=== PATIENT | female | born 1940 | race Caucasian/White ===

== ENCOUNTER 2018-12-25 11:10 | Inpatient (IN) | payer OTHER, MEDICARE ==
[~2018-12-25] VITALS: Ht 152.4 cm; Wt 64.0 kg
[~2018-12-25 11:10] MED LIST: APAP500 PO; CIPRO250 M1 PO; DIOVAN PO; GLYCOLAX POWDER17 G1; MYSOLINE250 MG PO; ROXICODONE5 M1 PO; SYNTHROID50 MCG PO
[2018-12-25 11:11] VITALS: BP 132/48
[2018-12-25] MEDS ORDERED: TYLENOL325 MG PO (11:50)
[2018-12-25] MEDS ORDERED: LASIX 20 MG TAB20 MG PO (11:52)
[2018-12-25] MEDS ORDERED: GABAPENTIN 100100 MG PO (11:52)
[2018-12-25] MEDS ORDERED: MILK OF MA400 MG/5 M PO (11:53)
[2018-12-25] MEDS ORDERED: KLOR-CON 1010 MEQ PO (11:53)
[2018-12-25] MEDS ORDERED: THEREMS-M1 EACH PO (11:54)
[2018-12-25] MEDS ORDERED: SENNA8.6 MG PO (11:54)
[2018-12-25 13:18] LABS: ABSOLUTE NEUTROPHILS 6.9 thou/uL (1.4-8.2); BASOPHILS 0.5 % (0.0-2.0); EOSINOPHILS 1.3 % (0.0-3.0); HEMATOCRIT 38.2 % (37.0-47.0); HEMOGLOBIN 12.9 gm/dL (12.0-15.0); LYMPHOCYTES 9.2 % (24.0-44.0); MCH 32.8 pg (26.0-34.0); MCHC 33.7 g/dL (28.0-37.0); MCV 97.3 fL (80.0-100.0); MONOCYTES 6.2 % (1.0-8.0); PLATELET COUNT 195 thou/uL (150-400); POLYS 82.8 % (36.0-66.0); RBC 3.92 mil/uL (4.20-5.00); WBC 8.4 thou/uL (4.0-11.0)
--- NOTE | 2018-12-25 13:27 | NUR ---
REPORT GIVEN TO NURSE AT [facility] RE: PT CONDITION AND ADMISSION TO HOSPITAL
[2018-12-25 13:33] LABS: CALCIUM 9.6 mg/dL (8.5-10.1); CREATININE 0.8 mg/dL (0.6-1.0)
[2018-12-25 13:38] LABS: ALBUMIN 3.2 g/dL (3.4-5.0); TOTAL BILIRUBIN 0.2 mg/dL (<0.1-1.0); TOTAL PROTEIN 7.1 g/dL (6.4-8.2)
[2018-12-25 13:40] VITALS: BP 136/60
--- NOTE | 2018-12-25 13:51 | NUR ---
ATTEMPTED TO CALL REPORT X 2 TO ICU. NURSE NOT ABLE TO TAKE AT THIS TIME AND WILL CALL BACK
[2018-12-25 14:00] VITALS: BP 110/68
[2018-12-25 14:04] LABS: TSH 4.138 uIU/mL (0.358-3.740)
[2018-12-25 19:44] VITALS: BP 107/50
[2018-12-25 20:00] VITALS: BP 107/50
[2018-12-26 04:00] VITALS: BP 122/60
--- NOTE | 2018-12-26 04:58 | NUR ---
PT IS NPO AWAITING ORTHO PROCEDURE FOR FRACTURED DISTAL FEMUR. ASSESSMENT CHARTED. DAUGHTER (DPOA) AT BEDSIDE. CALL LIGHT IN REACH. CONTINUE WITH PLAN OF CARE
[2018-12-26 05:12] LABS: HEMATOCRIT 34.3 % (37.0-47.0); HEMOGLOBIN 11.7 gm/dL (12.0-15.0); MCH 33.3 pg (26.0-34.0); MCHC 34.2 g/dL (28.0-37.0); MCV 97.4 fL (80.0-100.0); RBC 3.52 mil/uL (4.20-5.00); RDW 14.2 % (10.5-14.5)
[2018-12-26 05:25] LABS: CALCIUM 8.9 mg/dL (8.5-10.1); CREATININE 0.8 mg/dL (0.6-1.0); POTASSIUM 4.5 mmol/L (3.5-5.1)
[2018-12-26 08:00] VITALS: BP 100/49
--- NOTE | 2018-12-26 14:28 | NUR ---
INITIAL ASSESSMENT: JULIO reviewed chart and spoke with nursing and attending physician. Pt was admitted from [facility] due to right distal femur fx sustained in a fall at the facility yesterday. Pt with hx of dementia. Ortho consulted regarding need for surgical intervention. JULIO spoke with pt's dtr, Kate, via phone. Introduced role of JULIO. Per Kate, pt is currently in local intermodal truck driver care at [facility] and has been a resident there for almost 8 yrs. Pt is w/c bound and does not ambulate. Sara states that family have chosen conservative treatment at this time. Sara left a message for ortho and waiting for them to return her call. Plan is for pt to return to [facility] when medically stable. JULIO spoke with Sarita in admissions at [facility] to provide update. conference planner to fax clinical info for review. Sarita confirms they are able to accept pt back when stable. JULIO is following to assist as needed with discharge planning.
[2018-12-26 16:00] VITALS: BP 109/40
[2018-12-26 19:51] VITALS: BP 104/48
--- NOTE | 2018-12-26 20:41 | NUR ---
CALLED BACK AND ORDER TO HOLD LOVENOX TONIGHT DOSE.
--- NOTE | 2018-12-26 22:10 | NUR ---
PT LEFT ICU WITH STABLE CONDITIONS TO ROOM 432. 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 ALL BELONGING HAS BEEN SENT WITH HER.
[2018-12-27 04:35] VITALS: BP 99/51
--- NOTE | 2018-12-27 05:20 | NUR ---
PT BEEN SLEEPING THE WHOLE SHIFT. FAMILY IN ROOM. PT IS INCONTINENT.REQUIRES Q2HR TURN. REMAINS ON ROOM AIR. NO SIGNS OF DISTRESS. RLE WITH ABOUT 2+EDEMA.LEFT SIDED CONTRACTURES.PT BEEN NPO SINCE MIDNOC WITH PLANS FOR SURGERY IN THE AM. DTR EXPRESSED NEED TO CANCEL SURGERY. WILL CONTACT DOCTOR IN THE MORNING.
[2018-12-27 05:54] LABS: HEMATOCRIT 28.3 % (37.0-47.0); MCH 33.2 pg (26.0-34.0); MCHC 33.7 g/dL (28.0-37.0); MCV 98.6 fL (80.0-100.0); RBC 2.87 mil/uL (4.20-5.00); WBC 4.8 thou/uL (4.0-11.0)
[2018-12-27 05:58] LABS: HEMOGLOBIN 9.5 gm/dL (12.0-15.0)
[2018-12-27 06:01] LABS: CREATININE 0.8 mg/dL (0.6-1.0); MAGNESIUM 2.2 mg/dL (1.8-2.4); POTASSIUM 4.4 mmol/L (3.5-5.1)
[2018-12-27 07:39] VITALS: BP 114/44
--- NOTE | 2018-12-27 10:53 | NUR ---
ASSUMED CARE OF PT AT 0700. ASSESSMENT COMPLETED. ALERT, ORIETED TO SELF ONLY, HX DEMENTIA. DAUGHTER AT BEDSIDE. DENIES PAIN, N/V/D. PT INCONTINENT B/B. FAMILY DECIDED NOT TO DO SURGERY, DR. CONNELLY AWARE. RIGHT KNEE IMMOBILIZER TO BE PLACED ORDERED. MEDS GIVEN ORDERED. WILL CONTINUE TO MONITOR.
--- NOTE | 2018-12-27 15:09 | NUR ---
PT. DISCHARGING TODAY BACK TO [facility]. FAXED DC ORDERS/SUMMARY TO FACILITY AND SPOKE WITH TONY IN ADM. SHE RECEIVED DC ORDERS AND SCHEDULED TRANSPORT VIA AMB. FOR 5 TODAY. LEFT MS WITH DTR ON CELL PHONE OF DC AND TRANSPORT TIME. UNIT NOTIFIED AND CHART COPY PER US. RN TO CALL REPORT TO [phone].
--- NOTE | 2018-12-27 17:46 | NUR ---
NEW DISCHARGE ORDERS. RIGHT KNEE IMMOBILIZER IN PLACE. REPORT CALLED TO FACILITY AT [facility]. NO NEW SCRIPTS GIVEN. EMS STRETCHER ARRIVED AT 1700, PT LEFT IN STABLE CONDITION. IV REMOVED. DAUGHTER AT BEDSIDE.
== END 2018-12-27 17:50 | DRG 533 ==
LOC: ER 11:10 → ICU 12:24 → EROBS 12:24 → ICU 14:30 → 4E 12-26 21:51
PROVIDERS: Nurse Practitioner; ADMIT Internal Medicine
DX: S72.401A Unspecified fracture of lower end of right femur, initial encounter for closed fracture (principal); E43 Unspecified severe protein-calorie malnutrition; G40.909 Epilepsy, unspecified, not intractable, without status epilepticus; S09.90XA Unspecified injury of head, initial encounter; G89.29 Other chronic pain; M25.561 Pain in right knee; E03.9 Hypothyroidism, unspecified; F03.90 Unspecified dementia, unspecified severity, without behavioral disturbance, psychotic disturbance, mood disturbance, and anxiety; K75.9 Inflammatory liver disease, unspecified; K59.00 Constipation, unspecified; M24.542 Contracture, left hand; Z88.8 Allergy status to other drugs, medicaments and biological substances; Z47.89 Encounter for other orthopedic aftercare; Z90.49 Acquired absence of other specified parts of digestive tract; W05.0XXA Fall from non-moving wheelchair, initial encounter; Y93.89 Activity, other specified; Y92.89 Other specified places as the place of occurrence of the external cause; Y99.8 Other external cause status
CPT/HCPCS: 10084; 10196